=== PATIENT | male | born 1960 | race Caucasian/White ===

== ENCOUNTER 2019-05-25 14:49 | Emergency (ER) | payer OTHER ==
[~2019-05-25] VITALS: Ht 182.9 cm; Wt 87.1 kg
[2019-05-25] MEDS ORDERED: LISINOPRIL40 MG (15:15)
== END 2019-05-25 15:54 | disposition home or self-care (01) ==
LOC: ER 14:49
DX: M54.89 Other dorsalgia (principal); M62.830 Muscle spasm of back

== ENCOUNTER 2019-06-28 13:42 | Emergency (ER) | payer OTHER ==
[~2019-06-28] VITALS: Ht 182.9 cm; Wt 87.1 kg
[~2019-06-28 13:42] MED LIST: LISINOPRIL40 MG
== END 2019-06-28 16:27 | disposition home or self-care (01) ==
LOC: ER 13:42
DX: M54.5 Low back pain (principal)